=== PATIENT | male | born 1955 | race Caucasian/White ===

== ENCOUNTER 2022-12-08 15:38 | Emergency (ER) | payer BC, MEDICARE ==
[~2022-12-08] VITALS: Ht 172.7 cm; Wt 71.2 kg
[2022-12-08 15:56] VITALS: BP 154/82; PULSE 102; RESP 16; TEMP 98; O2SAT 99
[2022-12-12] MEDS ORDERED: HYDR25TA5 PO (18:38)
[2022-12-12] MEDS ORDERED: GABA600T13 PO (18:38)
== END 2022-12-08 16:56 | disposition left against medical advice (07) ==
LOC: ER 15:41
DX: M79.671 Pain in right foot (principal); Z53.21 Procedure and treatment not carried out due to patient leaving prior to being seen by health care provider
CPT/HCPCS: 99281

== ENCOUNTER 2022-12-23 15:05 | Inpatient (IN) | payer MEDICARE ==
[~2022-12-23] VITALS: Ht 175.3 cm; Wt 66.4 kg
[~2022-12-23 15:05] MED LIST: GABA600T13 PO; HYDR25TA5 PO
[2022-12-24] MEDS ORDERED: normal saline 1000ml 1,000 ML IV ONE (00:55)
[2022-12-24] MEDS ORDERED: vancomycin inj 1,000 MG in normal saline 250ml IV soln 250 ML IV ONE (00:55)
[2022-12-24] MEDS ORDERED: vancomycin/NS 1 GM ADD-VANTAGE 250 ML IV ONE (01:05)
[2022-12-24] MEDS ORDERED: iohexol 300mg/ml 100ml inj. ONE (01:10)
[2022-12-24 01:49] LABS: BASOPHILS # (AUTO) 0.1 X10'3 (0-0.2); BASOPHILS % (AUTO) 0.3 % (0-1); EOSINOPHILS # (AUTO) 0.7 X10'3 (0-0.9); EOSINOPHILS % (AUTO) 3.6 % (0-6); HEMATOCRIT 39.4 % (42.0-52.0); HEMOGLOBIN 13.1 g/dl (14.0-17.9); LYMPHOCYTES # (AUTO) 2.4 X10'3 (1.1-4.8); MEAN CORPUSCULAR HEMOGLOBIN 33.9 PG (27.0-31.0); MEAN CORPUSCULAR HGB CONC 33.2 g/dL (33.0-36.5); MEAN CORPUSCULAR VOLUME 102.2 FL (78-98); MEAN PLATELET VOLUME 7.7 FL (7.4-10.4); MONOCYTES # (AUTO) 1.2 X10'3 (0-0.9); MONOCYTES % (AUTO) 5.9 % (2-12); NEUTROPHILS # (AUTO) 15.5 X10'3 (1.8-7.7); NEUTROPHILS % (AUTO) 78.2 % (42-75); PLATELET COUNT 337 X10'3 (140-440); RED BLOOD COUNT 3.86 X10'6 (4.70-6.10); RED CELL DISTRIBUTION WIDTH 13.7 % (11.5-14.5); WHITE BLOOD COUNT 19.8 X10'3 (4.5-11.0)
[2022-12-24 01:59] LABS: PROTHROMBIN TIME 10.9 SECONDS (9.0-12.0)
[2022-12-24 02:14] LABS: ALANINE AMINOTRANSFERASE 102 U/L (12-78); ALBUMIN 2.8 G/DL (3.4-5.0); ALBUMIN/GLOBULIN RATIO 0.5 (1.1-1.5); ALKALINE PHOSPHATASE 221 IU/L (46-116); ANION GAP 16 (8-16); ASPARTATE AMINO TRANSFERASE 37 U/L (10-37); BILIRUBIN,TOTAL 0.4 MG/DL (0.1-1.0); BLOOD UREA NITROGEN 31 MG/DL (7-18); BUN/CREATININE RATIO 19.1 (10.0-20.0); CALCIUM 9.6 MG/DL (8.5-10.1); CHLORIDE 97 MMOL/L (99-107); CREATININE 1.62 MG/DL (0.60-1.10); GLUCOSE 163 MG/DL (70-104); POTASSIUM 4.2 MMOL/L (3.5-5.1); SODIUM 130 MMOL/L (135-145); TOTAL PROTEIN 8.4 G/DL (6.4-8.2); eCRCL 42 ML/MIN; eGFR 43 ML/MIN
[2022-12-24 02:39] LABS: LIPASE < 50 U/L (73-393)
[2022-12-24 03:08] LABS: TOTAL CELLS COUNTED 100
[2022-12-24 03:09] LABS: PLATELET ESTIMATE NORMAL
[2022-12-24] MEDS ORDERED: HYDROcodone/acetaminophen 5mg/325mg tablet PO PRN (03:30)
[2022-12-24] MEDS ORDERED: ondansetron/PF 4mg/2ml inj IV PRN (03:30)
[2022-12-24] MEDS ORDERED: magnesium hydroxide 30ml (MOM) UD suspension PO PRN (03:30)
[2022-12-24] MEDS ORDERED: acetaminophen 325mg tablet PO PRN (03:30)
[2022-12-24] MEDS ORDERED: diphenhydrAMINE 50 mg/ml inj IV PRN (03:30)
[2022-12-24] MEDS ORDERED: HYDROmorphone inj. 0.5 MG/0.5 ML DISP.SYRIN IV PRN (03:30)
[2022-12-24] MEDS ORDERED: HYDROcodone/acetaminophen 10/325mg tab PO PRN (03:30)
[2022-12-24] MEDS ORDERED: bisacodyl 10mg suppository rectal RC PRN (03:30)
[2022-12-24] MEDS ORDERED: mag hydrox/Alum hydrox/simeth 30ml oral suspension PO PRN (03:30)
[2022-12-24] MEDS ORDERED: morphine 2 MG/ML inj. syringe IV PRN ×2 (03:30)
[2022-12-24] MEDS ORDERED: diphenhydrAMINE 25mg capsule PO PRN (03:30)
[2022-12-24] MEDS ORDERED: ondansetron 4mg rapidly disintigrating tab PO PRN (03:30)
[2022-12-24] MEDS ORDERED: acetaminophen 650mg rectal suppository RC PRN (03:30)
[2022-12-24] MEDS ORDERED: insulin Lispro (HumaLOG) vial - multi-dose SQ SCH (03:35)
[2022-12-24] MEDS ORDERED: DEXTROSE 15 GM of carb/4 tabs (each vial/BOTTLE has 4 tablets) PO PRN ×2 (03:35)
[2022-12-24] MEDS ORDERED: MESSAGE TO PHARMACY PO ONE (03:35)
[2022-12-24] MEDS ORDERED: dextrose 50%-water 50ml dispensing syringe IV PRN ×2 (03:35)
[2022-12-24] MEDS ORDERED: glucagon, human recombinant 1mg kit SUBCUT PRN (03:35)
[2022-12-24] MEDS: normal saline 1000ml 1,000 ML IV SCH ×3 (03:53→23:30)
[2022-12-24 03:54] LABS: APTT 33 SECONDS (22-32)
[2022-12-24 04:49] LABS: BILIRUBIN,URINE NEGATIVE (Neg); CLARITY,URINE CLEAR (Clear); COLOR,URINE YELLOW (Yellow); GLUCOSE, URINE NEGATIVE (Neg); KETONES,URINE NEGATIVE (Neg); LEUKOCYTE ESTERASE ,URINE NEGATIVE (Neg); NITRITES, URINE NEGATIVE (Neg); OCCULT BLOOD,URINE NEGATIVE (Neg); PROTEIN,URINE TRACE mg/dl (Neg); UROBILINOGEN,URINE 0.2 E.U/dL (0.2-1.0)
[2022-12-24 04:55] LABS: UA COLLECTION TYPE CLN CATCH MIDSTREAM
[2022-12-24 05:05] LABS: BACTERIA,URINE NONE SEEN /HPF (Neg); MUCUS STRANDS NONE SEEN /LPF (Neg); RBC,URINE 0-2 /HPF (0-2); SQUAMOUS EPITHELIAL CELL,UR NONE SEEN /LPF (FEW); WBC,URINE 0-4 /HPF (0-4)
[2022-12-24] MEDS: piperacillin/tazo 3.375gm/50ml 50 ML IV SCH ×3 (06:41→21:29)
[2022-12-24] MEDS: docusate sod 100mg capsule PO SCH ×2 (07:30→20:00)
[2022-12-24] MEDS: pantoprazole 40mg Tablet.DR PO SCH (07:30)
[2022-12-24] MEDS: heparin, porcine 5000 units/ml vial SQ SCH ×2 (07:33→20:00)
[2022-12-24 08:34] LABS: C-REACTIVE PROTEIN 6.26 MG/DL (0.0-0.5); MAGNESIUM 2.1 MG/DL (1.5-2.4); PHOSPHORUS 2.7 MG/DL (2.3-4.5)
--- NOTE | 2022-12-24 12:25 | NUR ---
LUNCH MEAL TRAY GIVEN, PRIMARY NURSE CHECKED SUGARS FOR CARB CONTROLLED ORDERS
[2022-12-24] MEDS ORDERED: aspirin 81mg tab.chew PO ONE (15:05)
--- NOTE | 2022-12-24 15:06 | NUR ---
PRESSURE ULCER EDUCATION: DEFINITION: A pressure ulcer is an area of skin that breaks down when you stay in one position too long. The constant pressure against the skin reduces the blood flow to that area and the affected tissue dies. CAUSES: "Being bedridden or in a wheelchair "Fragile skin "Having a chronic condition, such as diabetes or vascular disease "Inability to move certain parts of your body without assistance "Older age "Incontinence of urine or stool SYMPTOMS: "A reddened area that DOES NOT turn white when pressed on - this can be the beginning of a pressure ulcer "A blister, deep sore or a crater - these can be advanced pressure ulcers FIRST AID: "Relieve the pressure on this area "Keep the area clean and dry "Call your primary doctor if you see any of the above symptoms "DO NOT massage the area "DO NOT use a donut shaped or ring shaped pillow- these actually interfere with the blood flow and cause complications PREVENTION: "Check for pressure ulcers everyday "Change position at least every two hours to relieve pressure "Use items that help relieve pressure- pillows, sheepskin, foam padding, and powders. "Keep skin clean and dry "Eat healthy well balanced meals "Exercise daily IF YOU SEE ANY OF THESE SYMPTOMS WHILE IN THE HOSPITAL - TELL YOUR NURSE IMMEDIATELY. IF YOU SEE ANY OF THESE SYMPTOMS WHILE AT HOME OR HAVE ANY QUESTIONS OR CONCERNS ABOUT PRESSURE ULCERS - CALL YOUR PRIMARY DOCTOR IMMEDIATELY. Addendum: 12/24/22 at 1506 by Carolin Mishra RN Amended: Links added.
[2022-12-24 21:30] VITALS: RESP 14; O2SAT 96
[2022-12-24 22:38] VITALS: BP 168/58; PULSE 52; RESP 16; TEMP 98.4; O2SAT 98
[2022-12-24] MEDS ORDERED: vancomycin/NS 1 GM ADD-VANTAGE 250 ML IV SCH (23:00)
[2022-12-25] MEDS ORDERED: vancomycin/NS 1 GM ADD-VANTAGE 250 ML IV SCH (01:00)
[2022-12-25] MEDS: piperacillin/tazo 3.375gm/50ml 50 ML IV SCH ×3 (05:52→21:18)
[2022-12-25 06:00] VITALS: BP 93/48; PULSE 62; RESP 16; TEMP 98.3; O2SAT 97
--- NOTE | 2022-12-25 06:30 | NUR ---
Patient in room [facility]TH[facility] 4020. I have received report from Camila GRIMES and had the opportunity to ask questions and assume patient care.
[2022-12-25 06:45] LABS: BASOPHILS # (AUTO) 0.1 X10'3 (0-0.2); BASOPHILS % (AUTO) 0.8 % (0-1); EOSINOPHILS # (AUTO) 0.7 X10'3 (0-0.9); EOSINOPHILS % (AUTO) 4.5 % (0-6); HEMOGLOBIN 11.2 g/dl (14.0-17.9); LYMPHOCYTES # (AUTO) 1.9 X10'3 (1.1-4.8); LYMPHOCYTES % (AUTO) 12.8 % (21-51); MEAN CORPUSCULAR HEMOGLOBIN 33.1 PG (27.0-31.0); MEAN CORPUSCULAR HGB CONC 32.9 g/dL (33.0-36.5); MEAN CORPUSCULAR VOLUME 100.6 FL (78-98); MEAN PLATELET VOLUME 8.2 FL (7.4-10.4); MONOCYTES # (AUTO) 1.6 X10'3 (0-0.9); MONOCYTES % (AUTO) 10.4 % (2-12); NEUTROPHILS # (AUTO) 10.7 X10'3 (1.8-7.7); NEUTROPHILS % (AUTO) 71.5 % (42-75); PLATELET COUNT 248 X10'3 (140-440); RED BLOOD COUNT 3.37 X10'6 (4.70-6.10); RED CELL DISTRIBUTION WIDTH 13.4 % (11.5-14.5)
[2022-12-25 07:13] LABS: ALBUMIN 2.2 G/DL (3.4-5.0); ANION GAP 12 (8-16); BLOOD UREA NITROGEN 22 MG/DL (7-18); BUN/CREATININE RATIO 20.8 (10.0-20.0); CALCIUM 8.6 MG/DL (8.5-10.1); CHLORIDE 104 MMOL/L (99-107); CHOL/HDL RATIO 7.3 (0.00-4.99); CHOLESTEROL 175 MG/DL (0-200); CREATININE 1.06 MG/DL (0.60-1.10); GLUCOSE 120 MG/DL (70-104); HDL CHOLESTEROL 24 MG/DL (35-60); LDL CHOLESTEROL 111 MG/DL (50-100); POTASSIUM 3.6 MMOL/L (3.5-5.1); SODIUM 137 MMOL/L (135-145); THYROID STIMULATING HORMONE 20.81 ulU/ml (0.34-4.50); TOTAL CARBON DIOXIDE 20.9 MMOL/L (24-32); TRIGLYCERIDES 160 MG/DL (20-135); eCRCL 64 ML/MIN; eGFR 70 ML/MIN
[2022-12-25 08:00] VITALS: RESP 16; O2SAT 97
[2022-12-25] MEDS: docusate sod 100mg capsule PO SCH ×2 (08:00→20:00)
[2022-12-25] MEDS: normal saline 1000ml 1,000 ML IV SCH ×2 (09:30→19:30)
[2022-12-25] MEDS: pantoprazole 40mg Tablet.DR PO SCH (09:40)
[2022-12-25] MEDS: aspirin 81mg tab.chew PO SCH (09:40)
[2022-12-25] MEDS: heparin, porcine 5000 units/ml vial SQ SCH ×2 (09:40→21:17)
[2022-12-25 10:00] VITALS: BP 150/73; PULSE 74; RESP 18; TEMP 97.1; O2SAT 99
[2022-12-25] MEDS ORDERED: gabapentin 400mg capsule PO ONE (11:20)
[2022-12-25] MEDS ORDERED: GABA-530 PO (13:57)
[2022-12-25] MEDS ORDERED: IBUP-1984 PO (13:58)
--- NOTE | 2022-12-25 14:13 | NUR ---
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 Per RN malnutrition screen, pt reports 12-23 pound wt loss and decreased PO/appetite. Pt seen at bedside and reports no changes in eating habits beside 4 days while in a post acute facility since their food was "awful" otherwise it has been normal. Observed pt eating his lunch during RD visit, reports good appetite and states "the food is delicious here", pending PO documentation. Pt is currently on a carb controlled diet but given A1c of 6% and blood glucose in good control recommend switching to regular given higher estimated need requirements; d/w RN. No scaled wt yet this admit and prior scaled wt on of 71.2kg per EMR. Pt states UBW of 175 pounds but did not know when he last weighed that, has not weighed himself in a while, and did not know how many pounds he has lost. Noted discrepancy in pt's report during RD visit and RN malnutrition screen. Physically pt did not have signs of muscle or fat wasting at this time. Due to unclear wt history in pt's report, nor reported changes in intake, and additionally no documented weakness in EMR, pt lacks a minimum of two malnutrition criteria at this time. LBM on 12/24 with routine bowel care on order per EMR. Will continue to monitor and make recommendations. Recommendations: 1. liberalized from carb controlled diet to a regular diet 2. monitor PO intake and need for ONS 3. routine bowel care 4. scaled wt this admit;subsequent weekly scaled wt Addendum: 12/25/22 at [address] Amended: Links added.
[2022-12-25] MEDS ORDERED: gabapentin 400mg capsule PO SCH (16:00)
--- NOTE | 2022-12-25 17:00 | NUR ---
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
[2022-12-25 18:00] VITALS: BP 133/64; PULSE 57; RESP 18; TEMP 97; O2SAT 100
--- NOTE | 2022-12-25 18:15 | NUR ---
Problems reprioritized. Patient report given, questions answered & plan of care reviewed with Camila GRIMES.
[2022-12-25] MEDS: vancomycin/NS 1 GM ADD-VANTAGE 250 ML IV SCH (19:01)
[2022-12-25 20:00] VITALS: RESP 14; O2SAT 97
[2022-12-25] MEDS: gabapentin 400mg capsule PO SCH (21:17)
[2022-12-25 22:00] VITALS: BP 135/57; PULSE 69; RESP 16; TEMP 98.6; O2SAT 96
--- NOTE | 2022-12-25 22:50 | NUR ---
Took over care of patient at this time from Deisy GRIMES.
--- NOTE | 2022-12-25 22:50 | NUR ---
Problems reprioritized. Patient report given, questions answered & plan of care reviewed with Jes GRIMES.
[2022-12-26] MEDS: vancomycin/NS 1 GM ADD-VANTAGE 250 ML IV SCH (01:46)
--- NOTE | 2022-12-26 02:59 | NUR ---
Agree with Carolin GRIMESmower mechanic except where I documented my findings.
[2022-12-26] MEDS: normal saline 1000ml 1,000 ML IV SCH ×2 (04:55→14:13)
[2022-12-26] MEDS: piperacillin/tazo 3.375gm/50ml 50 ML IV SCH ×3 (05:31→22:05)
--- NOTE | 2022-12-26 06:48 | NUR ---
Problems reprioritized. Patient report given, questions answered & plan of care reviewed with Kaye GRIMES.
[2022-12-26 07:00] VITALS: BP 118/47; PULSE 61; RESP 14; TEMP 97.7; O2SAT 98
--- NOTE | 2022-12-26 07:10 | NUR ---
Patient in room [facility]TH[facility] 4020. I have received report from jesus avila and had the opportunity to ask questions and assume patient care.
[2022-12-26 07:51] LABS: BASOPHILS # (AUTO) 0.1 X10'3 (0-0.2); BASOPHILS % (AUTO) 0.5 % (0-1); EOSINOPHILS # (AUTO) 0.6 X10'3 (0-0.9); EOSINOPHILS % (AUTO) 4.5 % (0-6); HEMATOCRIT 34.4 % (42.0-52.0); HEMOGLOBIN 11.4 g/dl (14.0-17.9); LYMPHOCYTES # (AUTO) 1.4 X10'3 (1.1-4.8); LYMPHOCYTES % (AUTO) 11.6 % (21-51); MEAN CORPUSCULAR HEMOGLOBIN 33.4 PG (27.0-31.0); MEAN CORPUSCULAR HGB CONC 33.2 g/dL (33.0-36.5); MEAN CORPUSCULAR VOLUME 100.5 FL (78-98); MEAN PLATELET VOLUME 7.7 FL (7.4-10.4); MONOCYTES # (AUTO) 1.8 X10'3 (0-0.9); MONOCYTES % (AUTO) 14.5 % (2-12); NEUTROPHILS # (AUTO) 8.5 X10'3 (1.8-7.7); NEUTROPHILS % (AUTO) 68.9 % (42-75); PLATELET COUNT 220 X10'3 (140-440); RED BLOOD COUNT 3.42 X10'6 (4.70-6.10); RED CELL DISTRIBUTION WIDTH 13.6 % (11.5-14.5); WHITE BLOOD COUNT 12.3 X10'3 (4.5-11.0)
[2022-12-26 08:00] LABS: ALBUMIN 2.2 G/DL (3.4-5.0); ANION GAP 13 (8-16); BLOOD UREA NITROGEN 16 MG/DL (7-18); BUN/CREATININE RATIO 14.7 (10.0-20.0); C-REACTIVE PROTEIN 2.86 MG/DL (0.0-0.5); CHLORIDE 104 MMOL/L (99-107); CREATININE 1.09 MG/DL (0.60-1.10); GLUCOSE 144 MG/DL (70-104); POTASSIUM 3.8 MMOL/L (3.5-5.1); SODIUM 137 MMOL/L (135-145); TOTAL CARBON DIOXIDE 20.5 MMOL/L (24-32); eCRCL 63 ML/MIN; eGFR 68 ML/MIN
[2022-12-26] MEDS: docusate sod 100mg capsule PO SCH ×2 (08:00→20:00)
[2022-12-26 08:08] LABS: CALCIUM 8.5 MG/DL (8.5-10.1)
[2022-12-26] MEDS: heparin, porcine 5000 units/ml vial SQ SCH ×2 (08:35→20:53)
[2022-12-26] MEDS: gabapentin 400mg capsule PO SCH ×2 (08:35→20:53)
[2022-12-26] MEDS: pantoprazole 40mg Tablet.DR PO SCH (08:35)
[2022-12-26] MEDS: aspirin 81mg tab.chew PO SCH (08:35)
[2022-12-26] MEDS: levoTHYROXINE 25mcg tablet PO SCH (08:35)
[2022-12-26 10:00] VITALS: BP 142/63; PULSE 56; RESP 18; TEMP 98; O2SAT 96
[2022-12-26] MEDS ORDERED: VANCOMYCIN LEVEL IV ONE (13:30)
[2022-12-26] MEDS ORDERED: VANCOMYCIN 750MG IV in NS 250 ML IV SCH (15:25)
[2022-12-26 18:00] VITALS: BP 164/55; PULSE 55; RESP 18; TEMP 98.4; O2SAT 98
--- NOTE | 2022-12-26 18:29 | NUR ---
Problems reprioritized. Patient report given, questions answered & plan of care reviewed with RITCHIE LARA.
--- NOTE | 2022-12-26 18:30 | NUR ---
Patient in room [facility]TH[facility] 4020. I have received report from Kaye GRIMES and had the opportunity to ask questions and assume patient care.
[2022-12-26 22:00] VITALS: BP 159/58; PULSE 55; RESP 16; TEMP 98.4; O2SAT 97
[2022-12-27] MEDS: normal saline 1000ml 1,000 ML IV SCH ×3 (02:59→21:30)
--- NOTE | 2022-12-27 04:49 | NUR ---
Agree with Filiberto LARA assessment except where I documented my findings and I precepted him tonight and reviewed his charting and medications.
[2022-12-27 05:00] VITALS: BP 139/65; PULSE 60; RESP 18; TEMP 97.8; O2SAT 98
[2022-12-27] MEDS: piperacillin/tazo 3.375gm/50ml 50 ML IV SCH ×3 (05:20→21:32)
[2022-12-27 06:35] LABS: BASOPHILS # (AUTO) 0.1 X10'3 (0-0.2); BASOPHILS % (AUTO) 0.7 % (0-1); EOSINOPHILS # (AUTO) 0.6 X10'3 (0-0.9); EOSINOPHILS % (AUTO) 5.6 % (0-6); HEMATOCRIT 33.5 % (42.0-52.0); HEMOGLOBIN 11.2 g/dl (14.0-17.9); LYMPHOCYTES # (AUTO) 2.5 X10'3 (1.1-4.8); MEAN CORPUSCULAR HEMOGLOBIN 33.6 PG (27.0-31.0); MEAN CORPUSCULAR HGB CONC 33.4 g/dL (33.0-36.5); MEAN CORPUSCULAR VOLUME 100.5 FL (78-98); MONOCYTES # (AUTO) 1.4 X10'3 (0-0.9); MONOCYTES % (AUTO) 12.5 % (2-12); NEUTROPHILS # (AUTO) 6.7 X10'3 (1.8-7.7); NEUTROPHILS % (AUTO) 59.2 % (42-75); PLATELET COUNT 231 X10'3 (140-440); RED BLOOD COUNT 3.33 X10'6 (4.70-6.10); RED CELL DISTRIBUTION WIDTH 13.4 % (11.5-14.5); WHITE BLOOD COUNT 11.3 X10'3 (4.5-11.0)
[2022-12-27 06:42] LABS: ALBUMIN 2.2 G/DL (3.4-5.0); ANION GAP 10 (8-16); BLOOD UREA NITROGEN 10 MG/DL (7-18); BUN/CREATININE RATIO 10.4 (10.0-20.0); C-REACTIVE PROTEIN 1.74 MG/DL (0.0-0.5); CALCIUM 8.6 MG/DL (8.5-10.1); CHLORIDE 106 MMOL/L (99-107); CREATININE 0.96 MG/DL (0.60-1.10); GLUCOSE 147 MG/DL (70-104); POTASSIUM 3.9 MMOL/L (3.5-5.1); SODIUM 137 MMOL/L (135-145); TOTAL CARBON DIOXIDE 21.3 MMOL/L (24-32); eCRCL 71 ML/MIN; eGFR 78 ML/MIN
--- NOTE | 2022-12-27 06:49 | NUR ---
Patient in room [facility]TH[facility] 4020. I have received report from Filiberto and had the opportunity to ask questions and assume patient care.
[2022-12-27] MEDS: levoTHYROXINE 25mcg tablet PO SCH (07:23)
[2022-12-27] MEDS: pantoprazole 40mg Tablet.DR PO SCH (07:23)
[2022-12-27] MEDS: gabapentin 400mg capsule PO SCH ×2 (07:23→21:33)
[2022-12-27] MEDS: aspirin 81mg tab.chew PO SCH (07:24)
[2022-12-27] MEDS: heparin, porcine 5000 units/ml vial SQ SCH ×2 (07:29→21:33)
[2022-12-27] MEDS: docusate sod 100mg capsule PO SCH ×2 (07:31→20:00)
[2022-12-27 10:00] VITALS: BP 125/77; PULSE 65; RESP 16; TEMP 98.1; O2SAT 98
--- NOTE | 2022-12-27 18:13 | NUR ---
Problems reprioritized. Patient report given, questions answered & plan of care reviewed with Kait.
--- NOTE | 2022-12-27 18:30 | NUR ---
Patient in room [facility]TH[facility] 4020. I have received report from KENYA and had the opportunity to ask questions and assume patient care.
[2022-12-27 19:00] VITALS: BP 138/57; PULSE 81; RESP 18; TEMP 97.4; O2SAT 96
[2022-12-27 22:00] VITALS: BP 169/70; PULSE 65; RESP 18; TEMP 99.1; O2SAT 99
[2022-12-28] VITALS (7 sets, daily range): BP systolic 103–158; BP diastolic 35–68; PULSE 55–64; RESP 12–20; TEMP 97.7–98.9; O2SAT 94–99
[2022-12-28] MEDS ORDERED: VANCOMYCIN LEVEL IV ONE (03:30)
[2022-12-28] MEDS: normal saline 1000ml 1,000 ML IV SCH ×2 (04:59→17:30)
[2022-12-28] MEDS: piperacillin/tazo 3.375gm/50ml 50 ML IV SCH ×3 (05:41→22:28)
[2022-12-28 06:45] LABS: BASOPHILS # (AUTO) 0.1 X10'3 (0-0.2); BASOPHILS % (AUTO) 0.6 % (0-1); EOSINOPHILS # (AUTO) 0.9 X10'3 (0-0.9); EOSINOPHILS % (AUTO) 7.3 % (0-6); HEMATOCRIT 34.9 % (42.0-52.0); HEMOGLOBIN 11.5 g/dl (14.0-17.9); LYMPHOCYTES # (AUTO) 2.6 X10'3 (1.1-4.8); LYMPHOCYTES % (AUTO) 22.3 % (21-51); MEAN CORPUSCULAR HEMOGLOBIN 33.4 PG (27.0-31.0); MEAN CORPUSCULAR VOLUME 101.1 FL (78-98); MEAN PLATELET VOLUME 7.6 FL (7.4-10.4); MONOCYTES # (AUTO) 1.4 X10'3 (0-0.9); MONOCYTES % (AUTO) 12.1 % (2-12); NEUTROPHILS # (AUTO) 6.8 X10'3 (1.8-7.7); NEUTROPHILS % (AUTO) 57.7 % (42-75); PLATELET COUNT 233 X10'3 (140-440); RED BLOOD COUNT 3.45 X10'6 (4.70-6.10); WHITE BLOOD COUNT 11.8 X10'3 (4.5-11.0)
--- NOTE | 2022-12-28 06:54 | NUR ---
Patient in room [facility]TH[facility] 4020. I have received report from SYDNEY Carballo and had the opportunity to ask questions and assume patient care.
--- NOTE | 2022-12-28 06:55 | NUR ---
Patient in room [facility]TH[facility] 4020. I have received report from SYDNEY Carballo and had the opportunity to ask questions and assume patient care.
[2022-12-28 07:26] LABS: ALBUMIN 2.2 G/DL (3.4-5.0); ANION GAP 11 (8-16); BLOOD UREA NITROGEN 11 MG/DL (7-18); BUN/CREATININE RATIO 10.7 (10.0-20.0); C-REACTIVE PROTEIN 1.05 MG/DL (0.0-0.5); CALCIUM 8.7 MG/DL (8.5-10.1); CHLORIDE 107 MMOL/L (99-107); CREATININE 1.03 MG/DL (0.60-1.10); GLUCOSE 155 MG/DL (70-104); POTASSIUM 4.1 MMOL/L (3.5-5.1); SODIUM 138 MMOL/L (135-145); TOTAL CARBON DIOXIDE 19.8 MMOL/L (24-32); eCRCL 66 ML/MIN; eGFR 72 ML/MIN
[2022-12-28] MEDS: aspirin 81mg tab.chew PO SCH (07:46)
[2022-12-28] MEDS: gabapentin 400mg capsule PO SCH ×2 (07:46→20:42)
[2022-12-28] MEDS: levoTHYROXINE 25mcg tablet PO SCH (07:47)
[2022-12-28] MEDS: pantoprazole 40mg Tablet.DR PO SCH (07:47)
[2022-12-28] MEDS: heparin, porcine 5000 units/ml vial SQ SCH ×2 (07:48→20:43)
[2022-12-28] MEDS: docusate sod 100mg capsule PO SCH ×2 (07:48→20:00)
--- NOTE | 2022-12-28 13:55 | NUR ---
F/u 12/28: Pt PO ~88% avg carb controlled diet meeting ~83% kcal and ~84% protein estimated needs. No sepsis in recent MD notes; updated needs below. Pt diet cancelled since 12/24 by "system" likely error; SHARA woodard MD recommends heart healthy diet given last A1C 6.0% 12/12/22 and pt would meet estimated needs w/ current intake trends if diet changes. LBM 12/27 per EMR. Will continue to follow. Recommendations: 1. liberalized from carb controlled diet to heart healthy diet; A1C 6.0% 2. monitor PO trends for ONS needs 3. routine bowel care 4. scaled wt this admit;subsequent weekly scaled wt Addendum: 12/28/22 at [address] Amended: Links added.
--- NOTE | 2022-12-28 18:41 | NUR ---
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
--- NOTE | 2022-12-28 19:00 | NUR ---
Patient in room [facility]TH[facility] 4020. I have received report from SYDNEY Carballo and had the opportunity to ask questions and assume patient care. Addendum: 12/29/22 at 0428 by Linda Wood RN Amended: Links added.
--- NOTE | 2022-12-28 19:00 | NUR ---
Patient in room [facility]TH[facility] 4020. I have received report from SYDNEY Carballo and had the opportunity to ask questions and assume patient care. Addendum: 12/29/22 at 0223 by Linda Wood RN Amended: Links added.
[2022-12-28] MEDS: acetaminophen 325mg tablet PO PRN (20:41)
[2022-12-28] MEDS: temazepam 15mg capsule PO PRN (20:42)
[2022-12-29] MEDS: normal saline 1000ml 1,000 ML IV SCH ×3 (00:58→20:42)
[2022-12-29 06:00] VITALS: BP 152/61; PULSE 61; RESP 18; TEMP 98.2; O2SAT 97
[2022-12-29 06:21] LABS: BASOPHILS # (AUTO) 0.1 X10'3 (0-0.2); BASOPHILS % (AUTO) 0.8 % (0-1); EOSINOPHILS # (AUTO) 0.9 X10'3 (0-0.9); EOSINOPHILS % (AUTO) 7.1 % (0-6); HEMATOCRIT 36.4 % (42.0-52.0); HEMOGLOBIN 12.2 g/dl (14.0-17.9); LYMPHOCYTES # (AUTO) 2.7 X10'3 (1.1-4.8); LYMPHOCYTES % (AUTO) 22.3 % (21-51); MEAN CORPUSCULAR HEMOGLOBIN 33.7 PG (27.0-31.0); MEAN CORPUSCULAR HGB CONC 33.4 g/dL (33.0-36.5); MEAN CORPUSCULAR VOLUME 100.9 FL (78-98); MEAN PLATELET VOLUME 8.1 FL (7.4-10.4); MONOCYTES # (AUTO) 1.2 X10'3 (0-0.9); NEUTROPHILS # (AUTO) 7.3 X10'3 (1.8-7.7); NEUTROPHILS % (AUTO) 59.8 % (42-75); PLATELET COUNT 237 X10'3 (140-440); RED BLOOD COUNT 3.61 X10'6 (4.70-6.10); RED CELL DISTRIBUTION WIDTH 13.6 % (11.5-14.5); WHITE BLOOD COUNT 12.2 X10'3 (4.5-11.0)
--- NOTE | 2022-12-29 06:32 | NUR ---
Patient in room [facility]TH[facility] 4020. I have received report from SYDNEY Mckeon and had the opportunity to ask questions and assume patient care.
[2022-12-29 06:38] LABS: ALBUMIN 2.3 G/DL (3.4-5.0); ANION GAP 8 (8-16); BLOOD UREA NITROGEN 11 MG/DL (7-18); BUN/CREATININE RATIO 9.8 (10.0-20.0); C-REACTIVE PROTEIN 0.73 MG/DL (0.0-0.5); CALCIUM 9.1 MG/DL (8.5-10.1); CHLORIDE 107 MMOL/L (99-107); CREATININE 1.12 MG/DL (0.60-1.10); GLUCOSE 131 MG/DL (70-104); POTASSIUM 3.9 MMOL/L (3.5-5.1); SODIUM 137 MMOL/L (135-145); TOTAL CARBON DIOXIDE 21.9 MMOL/L (24-32); eCRCL 61 ML/MIN; eGFR 66 ML/MIN
[2022-12-29 07:00] VITALS: RESP 18; O2SAT 97
[2022-12-29] MEDS: gabapentin 400mg capsule PO SCH ×2 (07:30→19:42)
[2022-12-29] MEDS: aspirin 81mg tab.chew PO SCH (07:30)
[2022-12-29] MEDS: levoTHYROXINE 25mcg tablet PO SCH (07:30)
[2022-12-29] MEDS: pantoprazole 40mg Tablet.DR PO SCH (07:30)
[2022-12-29] MEDS: heparin, porcine 5000 units/ml vial SQ SCH ×2 (07:31→19:42)
[2022-12-29] MEDS: piperacillin/tazo 3.375gm/50ml 50 ML IV SCH ×3 (07:35→22:45)
[2022-12-29] MEDS: docusate sod 100mg capsule PO SCH ×2 (07:37→19:41)
[2022-12-29 10:00] VITALS: BP 145/81; PULSE 71; RESP 19; TEMP 98.6; O2SAT 98
--- NOTE | 2022-12-29 13:37 | NUR ---
Sutures removed per JORGITO Shannon [facility] nursing order. Patient tolerated well. Daily wound care orders complete.
--- NOTE | 2022-12-29 18:00 | NUR ---
I have reviewed and agree with interventions, assessments, and documentation by Pio [place] LVN.
[2022-12-29 19:00] VITALS: RESP 18; O2SAT 97
[2022-12-29] MEDS: temazepam 15mg capsule PO PRN (19:49)
[2022-12-29] MEDS: acetaminophen 325mg tablet PO PRN (19:50)
--- NOTE | 2022-12-29 20:00 | NUR ---
Agree with physical assessment done by Darren Carrillo LVN.
[2022-12-29 22:00] VITALS: BP 116/56; PULSE 64; RESP 16; TEMP 98.3; O2SAT 97
--- NOTE | 2022-12-30 04:30 | NUR ---
Patient in room [facility]TH[facility] 4020. I have received report from Pio LARA and had the opportunity to ask questions and assume patient care.
--- NOTE | 2022-12-30 04:47 | NUR ---
Problems reprioritized. Patient report given, questions answered & plan of care reviewed with JANE Govea.
[2022-12-30 06:00] VITALS: BP 116/67; PULSE 68; RESP 16; TEMP 98.4; O2SAT 97
[2022-12-30 07:00] VITALS: RESP 16; O2SAT 97
[2022-12-30] MEDS: piperacillin/tazo 3.375gm/50ml 50 ML IV SCH (07:03)
[2022-12-30] MEDS: gabapentin 400mg capsule PO SCH (07:12)
[2022-12-30] MEDS: levoTHYROXINE 25mcg tablet PO SCH (07:12)
[2022-12-30] MEDS: aspirin 81mg tab.chew PO SCH (07:12)
[2022-12-30] MEDS: pantoprazole 40mg Tablet.DR PO SCH (07:13)
[2022-12-30] MEDS: heparin, porcine 5000 units/ml vial SQ SCH (07:13)
[2022-12-30] MEDS: docusate sod 100mg capsule PO SCH (08:00)
[2022-12-30] MEDS: normal saline 1000ml 1,000 ML IV SCH (08:42)
[2022-12-30 08:49] VITALS: RESP 16; O2SAT 97
[2022-12-30 10:00] VITALS: BP 169/78; PULSE 71; RESP 16; TEMP 98.1; O2SAT 99
[2022-12-30] MEDS ORDERED: GABA-535 PO (14:10)
[2022-12-30] MEDS ORDERED: ASPI81TA53 PO (14:10)
[2022-12-30] MEDS ORDERED: PANT40TA54 PO (14:10)
[2022-12-30] MEDS ORDERED: LEVO25TA7 PO ×2 (14:10→18:35)
--- NOTE | 2022-12-30 15:00 | NUR ---
Patient discharge home today. IV removed and all belongings were gathered. All discharge instructions were explained and all questions answered. Patient alert and appropriate. Patient wheeled downstairs and into private vehicle.
--- NOTE | 2022-12-30 15:38 | NUR ---
WOUND INFECTION EDUCATION PROVIDED BY WOUND CARE 1. Patient instructed to call their primary doctor, or go the ED immediately if any of the following symptoms occur: * Increased pain in wound * Increase in drainage from the wound * Redness in the skin surrounding the wound * Warmth in the skin surrounding the wound * Bleeding from the wound * Temperature of 101 or greater 2. If any of these occur while in the hospital tell a nurse immediately. Addendum: 12/30/22 at 1538 by Carolin Mishra RN Amended: Links added.
[2022-12-30] MEDS ORDERED: HYDR25TA5 PO (18:37)
== END 2022-12-30 15:00 | disposition home health service (06) | DRG 862 ==
LOC: ER 15:06 → ED HOLD 12-24 03:33 → ORTHO 4S 12-24 22:10
PROVIDERS: ADMIT Family Medicine; ATTEND Family Medicine
PROC: 0JBQ3ZZ Excision of Right Foot Subcutaneous Tissue and Fascia, Percutaneous Approach (ICD-10-PCS; principal; 2022-12-27)
PROC: 02HV33Z Insertion of Infusion Device into Superior Vena Cava, Percutaneous Approach (ICD-10-PCS; 2022-12-30)
PROC: B548ZZA Ultrasonography of Superior Vena Cava, Guidance (ICD-10-PCS; 2022-12-30)
DX: T81.41XA Infection following a procedure, superficial incisional surgical site, initial encounter (principal); A41.9 Sepsis, unspecified organism; N17.0 Acute kidney failure with tubular necrosis; E87.1 Hypo-osmolality and hyponatremia; E87.20 Acidosis, unspecified; L03.115 Cellulitis of right lower limb; L02.611 Cutaneous abscess of right foot; M86.8X7 Other osteomyelitis, ankle and foot; E11.69 Type 2 diabetes mellitus with other specified complication; E11.51 Type 2 diabetes mellitus with diabetic peripheral angiopathy without gangrene; E88.09 Other disorders of plasma-protein metabolism, not elsewhere classified; E11.65 Type 2 diabetes mellitus with hyperglycemia; E78.5 Hyperlipidemia, unspecified; Y83.5 Amputation of limb(s) as the cause of abnormal reaction of the patient, or of later complication, without mention of misadventure at the time of the procedure; E11.22 Type 2 diabetes mellitus with diabetic chronic kidney disease; J44.9 Chronic obstructive pulmonary disease, unspecified; E03.9 Hypothyroidism, unspecified; E11.42 Type 2 diabetes mellitus with diabetic polyneuropathy; I12.9 Hypertensive chronic kidney disease with stage 1 through stage 4 chronic kidney disease, or unspecified chronic kidney disease; N18.9 Chronic kidney disease, unspecified; Z72.0 Tobacco use; Z79.82 Long term (current) use of aspirin; Z89.431 Acquired absence of right foot; Z88.8 Allergy status to other drugs, medicaments and biological substances; Z79.899 Other long term (current) drug therapy; Y92.89 Other specified places as the place of occurrence of the external cause
CPT/HCPCS: 36415; 36569; 73701; 73718; 76942; 80048; 80053; 80061; 80202; 81001; 82948; 83605; 83690; 83735; 83880; 84100; 84145; 84443; 85007; 85025; 85610; 85651; 85730; 86140; 87040; 87081; 97116; 97161; 97530; 99285; A6266; A6446; A6449; C1751; G0378; J1644; J2543; J3370; J3490; J7030; J7050; Q9967

== ENCOUNTER → 2023-11-16 | Outpatient (CLI) | payer BC ==
[~2023-11-16] MED LIST changes: +APIX5TAB3 PO; +ATOR20TA66 PO; +CEPH250T PO; +GABA-535 PO; -GABA600T13 PO; +HYDR25TA4 PO; -HYDR25TA5 PO; +LACT1CAP74 PO; +LINA5TAB4 PO; +iohexol 350 MG/ML 50ML vial IV ONE; +iohexol 350MG/ML 100ml bottle IV ONE
[2023-11-16 12:49] LABS: BASOPHILS # (AUTO) 0.1 X10'3 (0-0.2); BASOPHILS % (AUTO) 0.7 % (0-1); EOSINOPHILS # (AUTO) 0.7 X10'3 (0-0.9); EOSINOPHILS % (AUTO) 5.5 % (0-6); HEMATOCRIT 38.5 % (42.0-52.0); HEMOGLOBIN 12.4 g/dl (14.0-17.9); LYMPHOCYTES # (AUTO) 3.6 X10'3 (1.1-4.8); LYMPHOCYTES % (AUTO) 29.5 % (21-51); MEAN CORPUSCULAR HEMOGLOBIN 32.3 PG (27.0-31.0); MEAN CORPUSCULAR HGB CONC 32.3 g/dL (33.0-36.5); MEAN CORPUSCULAR VOLUME 99.9 FL (78-98); MEAN PLATELET VOLUME 7.8 FL (7.4-10.4); MONOCYTES # (AUTO) 1.1 X10'3 (0-0.9); MONOCYTES % (AUTO) 8.9 % (2-12); NEUTROPHILS # (AUTO) 6.8 X10'3 (1.8-7.7); NEUTROPHILS % (AUTO) 55.4 % (42-75); PLATELET COUNT 210 X10'3 (140-440); RED BLOOD COUNT 3.85 X10'6 (4.70-6.10); RED CELL DISTRIBUTION WIDTH 15.7 % (11.5-14.5); WHITE BLOOD COUNT 12.3 X10'3 (4.5-11.0)
[2023-11-16 12:54] LABS: ALBUMIN 3.4 G/DL (3.4-5.0); ANION GAP 7 (8-16); BLOOD UREA NITROGEN 19 MG/DL (7-18); BUN/CREATININE RATIO 13.4 (10.0-20.0); CALCIUM 9.4 MG/DL (8.5-10.1); CHLORIDE 102 MMOL/L (99-107); CREATININE 1.42 MG/DL (0.60-1.10); GLUCOSE 135 MG/DL (70-104); POTASSIUM 3.5 MMOL/L (3.5-5.1); SODIUM 137 MMOL/L (135-145); TOTAL CARBON DIOXIDE 27.8 MMOL/L (24-32); eGFR 50 ML/MIN
== END | disposition home or self-care (01) ==
LOC: RAD 11:57
PROVIDERS: ATTEND Surgery
DX: S81.802A Unspecified open wound, left lower leg, initial encounter (principal); I73.9 Peripheral vascular disease, unspecified; I10 Essential (primary) hypertension; R53.83 Other fatigue; I70.8 Atherosclerosis of other arteries; I70.0 Atherosclerosis of aorta; N26.1 Atrophy of kidney (terminal); X58.XXXA Exposure to other specified factors, initial encounter; Y93.89 Activity, other specified; Y92.89 Other specified places as the place of occurrence of the external cause; Y99.8 Other external cause status
CPT/HCPCS: 36415; 75635; 80048; 85025; Q9967